=== PATIENT | female | born 1945 | race Two or more races ===

== ENCOUNTER → 2016-12-22 | Outpatient (CLI) | payer MEDICARE, BC, OTHER ==
--- NOTE | 2016-12-22 11:04 | REP ---
THORACOLUMBAR SPINE, TWO VIEWS: There is an old compression fracture of the T11 vertebral body with minimal height loss. The lumbar intervertebral discs are decreased in height consistent with disc degeneration. Osteophytes are present throughout the thoracic and lumbar spine. IMPRESSION: Degenerative change as described above. Signed by Mark Kee MD 12/22/2016 11:28 A
== END ==
LOC: M RAD 10:24
PROVIDERS: ATTEND Family Medicine
DX: M54.16 Radiculopathy, lumbar region (principal); M51.34 Other intervertebral disc degeneration, thoracic region

== ENCOUNTER → 2017-01-22 | Outpatient (CLI) | payer MEDICARE, BC, OTHER ==
--- NOTE | 2017-01-22 16:55 | REP ---
MR LUMBAR SPINE WITHOUT CONTRAST:HISTORY: Back and left leg pain. Decreased signal intensity on T2 weighted images is present in the lumbar intervertebral discs. The discs are decreased in height. These findings are consistent with disc degeneration. A disc bulge is present at the T12-L1 level. There is minimal effacement of the thecal sac without spinal cord compression. The T12 neural foramina are patent on sagittal images. A diffuse disc bulge is present at the L1-2 level. There is hypertrophy of the ligamenta flava and posterior articulating facets. These findings produce minimal central canal stenosis. The L1 nerves exit the neural foramina without compression. A diffuse disc bulge is present at the L2-3 level. There is minimal compression of the thecal sac. There is hypertrophy of the posterior articulating facets. The L2 nerves exit the neural foramina without compression. A diffuse disc bulge is present at the L3-4 level. A 2 mm synovial cyst is present medial to the left L3-4 facet joint. There is minimal compression of the thecal sac. There is hypertrophy of the posterior articulating facets. The L3 nerves exit the neural foramina without compression. A diffuse disc bulge is present at the L4-5 level. There is minimal compression of the thecal sac. There is hypertrophy of the posterior articulating facets. The L4 nerves exit the neural foramina without compression. A diffuse disc bulge is present at the L5-S1 level. There is hypertrophy of the ligamenta flava and posterior articulating facets. There are 5 mm of grade 1 spondylolisthesis of L5 on S1. These findings produce moderate central canal stenosis. There is compression of the L5 nerves in the neural foramina. The conus medullaris is normal in appearance. Terminating at the level of the L1-2 intervertebral disc. A hemangioma is present in the L1 vertebral body. Normal signal intensity is present in the remaining lumbar vertebral bodies. IMPRESSION:1. Minimal central canal stenosis at the L1-2 level secondary to disc bulge, ligamentous and facet hypertrophy. 2. Diffuse disc bulges at the L2-3 and L4-5 levels with minimal thecal sac compression. 3. Diffuse disc bulge and small left synovial cyst at the L3-4 level with minimal thecal sac compression. 4. Moderate central canal stenosis at the L5-S1 level secondary to disc bulge ligamentous and facet hypertrophy and grade 1 spondylolisthesis. There is compression of the L5 nerves in the neural foramina. Signed by Mark Kee MD 01/22/2017 05:02 P
== END ==
LOC: M PLARAD 14:19
PROVIDERS: ATTEND Family Medicine
DX: M51.26 Other intervertebral disc displacement, lumbar region (principal); M48.07 Spinal stenosis, lumbosacral region

== ENCOUNTER → 2017-02-05 | Outpatient (CLI) | payer MEDICARE, BC ==
--- NOTE | 2017-02-06 10:09 | DEXA ---
AP SPINE L1 - L4 1.217 0.2 1.9 LT FEMUR TOTAL 0.957 -0.4 1.1 RT FEMUR TOTAL 0.979 -0.2 1.3 TOTAL BODY TOTAL LEFT NECK TOTAL 0.805 -1.7 0.1 RIGHT NECK TOTAL 0.850 -1.4 0.4 COMMENTS: Normal bone densitometry of the spine. There is low bone density of the hips. On the prior exam, only femoral neck data is available. The density of the spine has decreased 6.9% since the initial exam on 2012. The spine density has decreased 4.6% since the most recent exam on 08/04/2016. The density of the left neck has decreased 2.9% since the initial exam on 2012. The density of the left neck has increased 2.0% since the most recent exam on . The density of the right neck increased 6.5% since the initial exam on 2012. The density of the right neck has decreased 3.5% since the most recent exam on 08/04/2016. FOLLOW-UP: Recommendation for the next bone density exam: 2 years. HERMANN
== END ==
LOC: M WHC 10:00
PROVIDERS: ATTEND Family Medicine
DX: M81.0 Age-related osteoporosis without current pathological fracture (principal)

== ENCOUNTER → 2020-03-26 | Outpatient (CLI) | payer MEDICARE, BC, OTHER ==
[~2020-03-26] MED LIST: AMLO1TAB25 PO; ATOR1TAB21 PO; BISO2.5T PO; NITR0.1S SL
[2020-03-26 11:06] LABS: BASO % 0.3 % (0.0-1.0); EOS # 0.4 10^3/uL (0.0-0.5); EOS % 5.4 % (0.0-3.0); HEMATOCRIT 43.9 % (36.0-47.0); HEMOGLOBIN 13.5 g/dl (12.0-15.5); LYMPH # 2.2 10^3/uL (1.5-5.0); LYMPH % 33.7 % (24.0-44.0); MEAN CORPUSCULAR HEMOGLOBIN 28.8 pg (27.0-33.0); MEAN CORPUSCULAR HGB CONC 30.8 g/dl (32.0-36.5); MEAN CORPUSCULAR VOLUME 93.8 fl (80.0-96.0); MONO # 0.5 10^3/uL (0.0-0.8); MONO % 8.2 % (0.0-5.0); NEUTROPHILS # 3.4 10^3/uL (1.5-8.5); NEUTROPHILS % 52.2 % (36.0-66.0); PLATELET COUNT, AUTOMATED 217 10^3/uL (150-450); RED BLOOD COUNT 4.68 10^6/uL (4.00-5.40); WHITE BLOOD COUNT 6.4 10^3/uL (4.0-10.0)
[2020-03-26 11:09] LABS: APPEARANCE, URINE CLEAR (CLEAR); BACTERIA, URINE AUTO NEGATIVE (NEGATIVE); BILIRUBIN, URINE AUTO NEGATIVE (NEGATIVE); BLOOD, URINE BLOOD 1+ (NEGATIVE); COLOR, URINE YELLOW (YELLOW); GLUCOSE, URINE (UA) AUTO NEGATIVE (NEGATIVE); KETONE, URINE AUTO NEGATIVE (NEGATIVE); LEUKOCYTE ESTERASE, URINE AUTO NEGATIVE (NEGATIVE); MUCUS, URINE SMALL (NEGATIVE); NITRITE, URINE AUTO NEGATIVE (NEGATIVE); PROTEIN, URINE AUTO NEGATIVE (NEGATIVE); RBC, URINE AUTO 0 /HPF (0-3); SPECIFIC GRAVITY URINE AUTO 1.015 (1.002-1.035); SQUAMOUS EPITHELIAL CELL UR AU 1 /HPF (0-6); UROBILINOGEN, URINE AUTO 0.2 mg/dL (0.0-2.0); WBC, URINE AUTO 1 /HPF (0-3)
[2020-03-26 11:39] LABS: ALBUMIN 3.6 GM/DL (3.2-5.2); ALT/SGPT 26 U/L (12-78); AMYLASE 57 U/L (25-115); BILIRUBIN,TOTAL 0.4 MG/DL (0.2-1.0); BLOOD UREA NITROGEN 13 MG/DL (7-18); CALCIUM LEVEL 9.6 MG/DL (8.8-10.2); CARBON DIOXIDE LEVEL 30 MEQ/L (21-32); CHLORIDE LEVEL 106 MEQ/L (98-107); CREATININE FOR GFR 0.58 MG/DL (0.55-1.30); GLOMERULAR FILTRATION RATE > 60.0 (>39); GLUCOSE, FASTING 98 MG/DL (70-100); LIPASE 166 U/L (73-393); MAGNESIUM LEVEL 2.3 MG/DL (1.8-2.4); POTASSIUM SERUM 4.3 MEQ/L (3.5-5.1); SODIUM LEVEL 140 MEQ/L (136-145); TOTAL PROTEIN 7.3 GM/DL (6.4-8.2)
[2020-03-26 11:50] LABS: ERYTHROCYTE SEDIMENTATION RATE 24 mm/hr (0-30)
--- NOTE | 2020-03-26 11:55 | REP ---
INDICATION: COUGH/CT . COMPARISON: None. TECHNIQUE: PA and lateral views FINDINGS: The superior mediastinal structures are midline. The cardiac silhouette is unremarkable in size, shape, and position. The diaphragmatic surfaces of the lungs are regular, and the costophrenic angles are clear. The pulmonary mcguire are clear. The imaged osseous structures are intact. IMPRESSION: There is no acute cardiopulmonary disease. <Electronically signed by Nj Copeland > 03/26/20 [id number]
--- NOTE | 2020-03-26 13:12 | REP ---
INDICATION: DIARRHEA/ABD PAIN. COMPARISON: None TECHNIQUE: 100 cc Isovue 370 given intravenously along with oral bowel preparatory contrast administration prior to the exam. FINDINGS: Mild fibrotic and/or subsegmental atelectatic changes are seen in the lung bases. There is mild intrahepatic ductal dilatation likely secondary to the patient's post cholecystectomy state. There are no enhancing hepatic lesions. The spleen, pancreas, adrenal glands, and kidneys are within normal limits. The abdominal aorta and para-aortic regions are within normal limits. The bowel loops and the mesenteries are within normal limits. There is no free fluid or free air. There is no mass or adenopathy. Bone window technique throughout the examination shows a grade 2 T11 anterior wedge compression deformity. There is degenerative disc space narrowing and degenerative facet joint change seen throughout the lumbar spine. IMPRESSION: 1. There is no evidence of acute intra-or intrapelvic disease. Findings as described above. 2. Age undetermined T11 compression fracture as described above. 3. Other findings as described above. <Electronically signed by Nj Copeland > 03/26/20 [id number]
== END ==
LOC: M LAB 10:02
PROVIDERS: ATTEND Surgery
DX: R05 Cough (principal); R19.7 Diarrhea, unspecified; R10.9 Unspecified abdominal pain; M51.36 Other intervertebral disc degeneration, lumbar region

== ENCOUNTER → 2020-07-21 | Outpatient (REF) | payer MEDICARE, OTHER ==
[2020-07-21 10:52] LABS: CHOLESTEROL RISK RATIO 2.531 (<5)
[2020-07-21 13:16] LABS: TOTAL 25(OH) VITAMIN D 34.8 NG/ML (30.0-100.0)
== END ==
LOC: M PLALAB 08:04
PROVIDERS: ATTEND Family Medicine
DX: E78.00 Pure hypercholesterolemia, unspecified (principal); E55.9 Vitamin D deficiency, unspecified; Z79.899 Other long term (current) drug therapy

== ENCOUNTER → 2020-08-20 | Outpatient (CLI) | payer MEDICARE, BC ==
--- NOTE | 2020-08-25 10:11 | REP ---
INDICATION: N64.4 N64.4 RT BREAST PAIN. Lump outer right breast for 2-3 weeks. History right breast cancer at age 60, with lumpectomy and radiation therapy. COMPARISON: 01/03/2019, 12/31/2017, 08/04/2016, 12/13/2015. TECHNIQUE: MLO and CC views bilateral breasts performed with tomosynthesis. The palpable lump is marked on the skin with a marker. FINDINGS: Mild scattered fibroglandular tissue is present bilaterally unchanged since prior studies. Stable postsurgical architectural distortion and dystrophic calcifications are noted in the outer right breast. This is in the region of the palpable lump. There is no new mass or clustered microcalcifications. The Volpara volumetric breast density pattern is B. IMPRESSION: BIRADS/ACR category 0, incomplete. No significant change in the appearance of the mammogram compared to prior studies. The reported palpable abnormality is in the region of prior right lumpectomy. It likely corresponds to the postsurgical scarring. Recommend right axillary CC tomographic sequence and right mL tomographic sequence, as well as focused right breast ultrasound at the site of the palpable lump. This mammogram was interpreted with the aid of an FDA-approved computer-aided detection system. The patient states she had a clinical breast exam in Jul, 2020. The patient letter being requested is M0. RECOMMENDATION: Recommend right axillary CC tomographic sequence and right mL tomographic sequence, as well as focused right breast ultrasound at the site of the palpable lump. <Electronically signed by Jayson Carbajal > 08/25/20 [id number]
== END ==
LOC: M WHC 10:50
PROVIDERS: ATTEND Family Medicine
DX: I25.10 Atherosclerotic heart disease of native coronary artery without angina pectoris (principal); Z85.3 Personal history of malignant neoplasm of breast; Z92.3 Personal history of irradiation; R92.2 Inconclusive mammogram
CPT/HCPCS: 36415; 77066; 80048; 80061; 85025; G0279

== ENCOUNTER → 2020-08-20 | Outpatient (REF) | payer MEDICARE, OTHER ==
[2020-08-20 11:38] LABS: BASO % 0.2 % (0.0-1.0); EOS # 0.1 10^3/uL (0.0-0.5); EOS % 2.1 % (0.0-3.0); HEMATOCRIT 44.1 % (36.0-47.0); LYMPH # 2.3 10^3/uL (1.5-5.0); MEAN CORPUSCULAR HEMOGLOBIN 29.2 pg (27.0-33.0); MEAN CORPUSCULAR HGB CONC 31.7 g/dl (32.0-36.5); MEAN CORPUSCULAR VOLUME 92.1 fl (80.0-96.0); MONO # 0.5 10^3/uL (0.0-0.8); MONO % 7.8 % (2.0-8.0); NEUTROPHILS # 2.9 10^3/uL (1.5-8.5); NEUTROPHILS % 49.7 % (36.0-66.0); PLATELET COUNT, AUTOMATED 233 10^3/uL (150-450); RED BLOOD COUNT 4.79 10^6/uL (4.00-5.40); WHITE BLOOD COUNT 5.8 10^3/uL (4.0-10.0)
[2020-08-20 13:12] LABS: BLOOD UREA NITROGEN 12 MG/DL (7-18); CALCIUM LEVEL 9.3 MG/DL (8.8-10.2); CARBON DIOXIDE LEVEL 28 MEQ/L (21-32); CHLORIDE LEVEL 106 MEQ/L (98-107); CHOLESTEROL LEVEL 192 MG/DL (<200); CHOLESTEROL RISK RATIO 2.823 (<5); CREATININE FOR GFR 0.63 MG/DL (0.55-1.30); GLOMERULAR FILTRATION RATE > 60.0 (>39); GLUCOSE, FASTING 109 MG/DL (70-100); HDL CHOLESTEROL 68 MG/DL (>40); LDL CHOLESTEROL 104 MG/DL (<100); NON-HDL-C 124 MG/DL; POTASSIUM SERUM 4.3 MEQ/L (3.5-5.1); SODIUM LEVEL 140 MEQ/L (136-145); TRIGLYCERIDES LEVEL 101 MG/DL (<150)
== END ==
LOC: M PLALAB 09:37
PROVIDERS: ATTEND Internal Medicine Cardiovascular Disease
DX: I25.10 Atherosclerotic heart disease of native coronary artery without angina pectoris (principal)

== ENCOUNTER → 2020-09-20 | Outpatient (CLI) | payer MEDICARE, BC ==
--- NOTE | 2020-09-20 10:51 | REP ---
INDICATION: DIAG R MAMMO/R AXILLARY/R BREAST LUMP. COMPARISON: Multiple the latest 08/20/2020 with others from an outside institution along with prior right breast ultrasonography from that same outside institution TECHNIQUE: Diagnostic digital exaggerated CC lateral views and true lateral views of the right breast were obtained using 2D and 3D modalities and compared to the prior exams. Patient complains of 2 palpable nodules 1 in the upper outer quadrant and the other in the lower outer quadrant. These areas of been identified by the technologist placing triangular-shaped markers on the skin. In addition, ultrasonography was obtained. Both anatomical intelligence and shear wave elastography was performed. FINDINGS: The right breast is unchanged in size and shape. Postprocedural changes are again seen in the right breast. There are no veronika soft tissue densities or spiculated masses. There is no veronika internal architectural distortion. There are stable benign calcifications. Diagnostic right breast ultrasound is a compared to the prior ultrasound examination 01/18/2016 from an outside institution. Once again, there is a mixed echo area seen at the 8 to 9 o'clock position which is completely unchanged in appearance from the prior ultrasound exam. Shear wave elastography on this lesion shows low kPa values. The lesion is smaller in size compared to the prior exam today measuring 1.25 cm in its greatest dimension. A small persistent completely anechoic structure is also identified. This exhibits posterior wall enhancement and increased through transmission. IMPRESSION: BIRADS/ACR category 2 negative mammogram. No suspicious ultrasound findings as described above. Category 2 ultrasound. A negative mammogram and a negative breast ultrasound should never curtail biopsy of a clinically palpable mass or clinically suspicious area the breast. Consider breast MRI if clinically relevant. This mammogram was interpreted with the aid of an FDA-approved computer-aided detection system. The patient states she had a clinical breast exam in August 2020. The patient letter being requested is M2 RECOMMENDATION: Repeat screening mammography recommended 1 year (for women over 40). <Electronically signed by Nj Copeland > 09/20/20 [id number]
== END ==
LOC: M WHC 08:46
PROVIDERS: ATTEND Family Medicine
DX: N63.11 Unspecified lump in the right breast, upper outer quadrant (principal); N63.13 Unspecified lump in the right breast, lower outer quadrant; R92.1 Mammographic calcification found on diagnostic imaging of breast
CPT/HCPCS: 76642; 77065; G0279

== ENCOUNTER → 2020-12-13 | Outpatient (CLI) | payer MEDICARE, BC, OTHER ==
[2020-12-13 11:01] LABS: CHOLESTEROL RISK RATIO 2.868 (<5)
[2020-12-13 11:45] LABS: HEMOGLOBIN A1c 5.7 %
== END ==
LOC: M PLALAB 08:14
PROVIDERS: ATTEND Internal Medicine Cardiovascular Disease
DX: E78.00 Pure hypercholesterolemia, unspecified (principal); Z79.899 Other long term (current) drug therapy

== ENCOUNTER → 2021-02-01 | Outpatient (CLI) | payer MEDICARE, BC, OTHER ==
[2021-02-01 12:17] LABS: BLOOD UREA NITROGEN 13 MG/DL (7-18); CALCIUM LEVEL 9.9 MG/DL (8.8-10.2); CARBON DIOXIDE LEVEL 34 MEQ/L (21-32); CHLORIDE LEVEL 106 MEQ/L (98-107); CREATININE FOR GFR 0.72 MG/DL (0.55-1.30); GLOMERULAR FILTRATION RATE > 60.0 (>39); GLUCOSE, FASTING 110 MG/DL (70-100); POTASSIUM SERUM 4.4 MEQ/L (3.5-5.1); SODIUM LEVEL 142 MEQ/L (136-145)
[2021-02-01 13:54] LABS: TOTAL 25(OH) VITAMIN D 45.7 NG/ML (30.0-100.0)
== END ==
LOC: M PLALAB 09:57
PROVIDERS: ATTEND Family Medicine
DX: E55.9 Vitamin D deficiency, unspecified (principal); I10 Essential (primary) hypertension

== ENCOUNTER → 2021-02-01 | Outpatient (CLI) | payer MEDICARE, BC, OTHER ==
--- NOTE | 2021-02-01 13:55 | DEXAMM ---
INDICATION: LOW BONE DENSITY. COMPARISON: 02/05/2017 and 12/17/2012. TECHNIQUE: Bone density was measured using dual-energy x-ray absorptiometry (DEXA). FINDINGS: AP SPINE L1-L4 BMD 1.257 g/cm2 Young Adult T-Score 0.5 Age Matched Z-Score 2.3. LT FEMUR, TOTAL BMD 0.882 g/cm2 Young Adult T-Score -1.0 Age Matched Z-Score 0.8. LT NECK BMD 0.789 g/cm2 Young Adult T-Score -1.8 Age Matched Z-Score 0.2. RT FEMUR, TOTAL BMD 0.901 g/cm2 Young Adult T-Score -0.8 Age Matched Z-Score 0.9. RT NECK BMD 0.826 g/cm2 Young Adult T-Score -1.5 Age Matched Z-Score 0.4. IMPRESSION: There is normal bone density of the spine. There is low bone density of the left hip. There is low bone density of the right hip. The density of the spine has decreased 3.8% since the initial exam on 12/17/2012. The density of the spine increased 3.3% since most recent exam on 02/05/2017. The density of the left hip has decreased 7.8% since initial exam on 02/05/2017. The density of the right hip has decreased 8.0% since the initial exam on 02/05/2017. FOLLOW-UP: Recommendation for the next bone density exam: 2 years. <Electronically signed by Jayson Carbajal > 02/01/21 [id number]
== END ==
LOC: M WHC 08:37
PROVIDERS: ATTEND Family Medicine
DX: M85.88 Other specified disorders of bone density and structure, other site (principal); E55.9 Vitamin D deficiency, unspecified; I10 Essential (primary) hypertension